=== PATIENT | female | born 1945 | race Caucasian/White ===

== ENCOUNTER → 2018-05-22 10:41 | Outpatient (CLI) | payer MEDICARE ==
[2018-05-22 11:06] LABS: HEMATOCRIT 46.2 % (36.0-48.0); HEMOGLOBIN 15.6 g/dL (12-16); LYMPHOCYTES 44.2 % (15-50); MCH 32.2 pg (26.0-34.0); MCHC 33.8 g/dL (31.0-37.0); MCV 95.5 fL (80.0-100.0); MEAN PLATELET VOLUME 10.6 fL (7.4-10.4); NEUTROPHILS 38.9 % (40-80); PLATELET COUNT 204 10x3/uL (130-400); RBC 4.84 10x6/uL (4.00-5.40); RDW 12.4 % (11.5-14.5); WBC 4.6 10x3/uL (4.8-10.8)
[2018-05-22 11:42] LABS: ALBUMIN 3.7 g/dL (3.4-5.0); ANION GAP 13.5 mmol/L (8-16); BILIRUBIN - TOTAL 0.47 mg/dL (0.2-1.3); CALCIUM 9.3 mg/dL (8.5-10.1); CARBON DIOXIDE 30.6 mmol/L (21.0-32.0); CHOL - HDL RATIO 3.4 ratio (2.3-4.1); CREATININE - SERUM 0.9 mg/dL (0.6-1.3); LDL-HDL RATIO 2.1 ratio (1.5-3.5); POTASSIUM - SERUM 4.1 mmol/L (3.5-5.1); PROTEIN - SERUM 6.9 g/dL (6.4-8.2); T4 THYROXINE 9.4 ug/dL (4.7-13.3); THYROID STIMULATING HORMONE 3.42 uIU/mL (0.36-3.74)
== END | disposition home or self-care (01) ==
LOC: D.LABREF 10:41
PROVIDERS: Family Medicine
DX: Z51.81 Encounter for therapeutic drug level monitoring (principal); Z79.899 Other long term (current) drug therapy; E03.9 Hypothyroidism, unspecified

== ENCOUNTER 2019-01-28 11:42 | Emergency (ER) | payer MEDICARE ==
[~2019-01-28] VITALS: Ht 172.7 cm; Wt 136.4 kg
[2019-01-28 11:56] VITALS: Ht 172.7 cm; Wt 136.4 kg
[2019-01-28] MEDS ORDERED: HYDROCODON-ACE1 EA10 PO (11:58)
[2019-01-28] MEDS ORDERED: NYSTATIN15 GM TOPICAL (11:59)
[2019-01-28] MEDS ORDERED: CYANOCOBAL1000 MCG/4 SC (11:59)
[2019-01-28] MEDS ORDERED: MECLIZINE HCL25 MG PO (12:00)
[2019-01-28] MEDS ORDERED: LIPITOR20 MG PO (12:01)
[2019-01-28] MEDS ORDERED: XANAX0.5 MG PO (12:01)
[2019-01-28] MEDS ORDERED: HYDROCHLOROTH12.5 M1 PO (12:01)
[2019-01-28] MEDS ORDERED: SYNTHROID75 MCG PO (12:01)
[2019-01-28] MEDS ORDERED: EFFEXOR XR75 MG PO (12:02)
[2019-01-28] MEDS ORDERED: PLAVIX75 MG PO (12:02)
[2019-01-28] MEDS ORDERED: VOLTAREN75 MG PO (12:02)
[2019-01-28] MEDS ORDERED: NORVASC10 MG PO (12:03)
[2019-01-28] MEDS ORDERED: TRAZODONE HCL150 MG PO (12:03)
[2019-01-28] MEDS ORDERED: MEDROL DOSE PACK4 MG PO (13:13)
[2019-01-28] MEDS ORDERED: CYCLOBENZAPRINE10 MG PO (13:13)
[2019-01-28 14:27] VITALS: BP 139/63
== END 2019-01-28 14:22 | disposition home or self-care (01) ==
LOC: D.ER 11:42
DX: M25.561 Pain in right knee (principal); M25.562 Pain in left knee; I10 Essential (primary) hypertension

== ENCOUNTER → 2020-06-09 17:55 | Outpatient (CLI) | payer MEDICARE ==
[2019-01-28 11:56] VITALS: BMI 45.7
[~2020-06-09 17:55] MED LIST: CYANOCOBAL1000 MCG/4 SC; CYCLOBENZAPRINE10 MG PO; EFFEXOR XR75 MG PO; HYDROCHLOROTH12.5 M1 PO; HYDROCODON-ACE1 EA10 PO; LIPITOR20 MG PO; MECLIZINE HCL25 MG PO; MEDROL DOSE PACK4 MG PO; NORVASC10 MG PO; NYSTATIN15 GM TOPICAL; PLAVIX75 MG PO; SYNTHROID75 MCG PO; TRAZODONE HCL150 MG PO; VOLTAREN75 MG PO; XANAX0.5 MG PO
[2020-06-09 18:27] LABS: BILIRUBIN NEGATIVE (NEGATIVE); KETONE NEGATIVE (NEGATIVE); NITRITE NEGATIVE (NEGATIVE); UROBILINOGEN NORMAL mg/dL (< 2)
== END | disposition home or self-care (01) ==
LOC: D.LABREF 17:55
PROVIDERS: ATTEND Family Medicine
DX: N39.0 Urinary tract infection, site not specified (principal)

== ENCOUNTER 2020-09-06 11:49 | Emergency (ER) | payer MEDICARE ==
[~2020-09-06] VITALS: Ht 172.7 cm; Wt 136.4 kg
[2020-09-06 11:54] VITALS: BP 133/74; Ht 172.7 cm; Wt 136.4 kg
[2020-09-06] MEDS ORDERED: FLUTICASONE PRO16 GM NASAL (13:20)
== END 2020-09-06 14:53 | disposition home or self-care (01) ==
LOC: D.ER 11:49
DX: R05 Cough (principal); Z86.73 Personal history of transient ischemic attack (TIA), and cerebral infarction without residual deficits; I10 Essential (primary) hypertension; K21.9 Gastro-esophageal reflux disease without esophagitis